=== PATIENT | male | born 1995 | race African-American/Black ===

== ENCOUNTER 2021-05-18 23:31 | Emergency (ER) | payer SELFPAY ==
[~2021-05-18] VITALS: Ht 170.2 cm; Wt 59.1 kg
[2021-05-18 23:35] VITALS: BP 110/65
--- NOTE | 2021-05-19 00:05 | PHYS DOC ---
Past Medical History Smoking Status: Current Every Day Smoker Alcohol Use: Occasionally General Adult EDM: Chief Complaint: SKIN RASH/ABSCESS HPI: HPI: Patient is a 25 year old male who presents with complaining of rash/insect bites. Patient states he has a sore on the left lower inner lip for a couple days. Denies any fever, denies smoking cigarettes but reports marijuana use which he smells heavily off. Denies any fever, cough or congestion. He is also complaining of a rash/itching on the right buttock and the left side of his face, symptoms began today. He believes he is being bit by something at home. Patient is very high on marijuana and seems to drift into other than none healthcare related stories. Review of Systems: Review of Systems: Constitutional: Denies fever or chills. [] Musculoskeletal: Denies back pain or joint pain. [] Integument: reports rash and mouth sore Neurologic: Denies headache, focal weakness or sensory changes. [] Endocrine: Denies polyuria or polydipsia. [] Psychiatric: Denies depression or anxiety. [] Heart Score: C/O Chest Pain: N/A Risk Factors: Risk Factors: DM, Current or recent (<one month) smoker, HTN, HLP, family hi story of CAD, obesity. Risk Scores: Score 0 - 3: 2.5% MACE over next 6 weeks - Discharge Home Score 4 - 6: 20.3% MACE over next 6 weeks - Admit for Clinical Observation Score 7 - 10: 72.7% MACE over next 6 weeks - Early Invasive Strategies Physical Exam: PE: Constitutional: Well developed, well nourished, no acute distress, non-toxic appearance. [] HENT: Normocephalic, atraumatic, bilateral external ears normal, oropharynx moist, no oral exudates, nose normal. [] Skin: Warm, dry, in the left lower lip with a small area of stomatitis lesions. Trace amount of nonerythematous papular rash on patient's face, right buttock was examined with the RN in the room, no rashes noted. Back: No tenderness, no CVA tenderness. [] Extremities: No tenderness, no cyanosis, no clubbing, ROM intact, no edema. [] Neurologic: Alert and oriented X 3, normal motor function, normal sensory function, no focal deficits noted. [] Psychologic: Affect normal, judgement normal, mood normal. [] EKG: EKG: [] Radiology/Procedures: Radiology/Procedures: [] Course & Med Decision Making: Course & Med Decision Making Pertinent Labs and Imaging studies reviewed. (See chart for details) This is a 25-year-old male patient presenting to the ED today complaining of rashes on the left inner lip, left side of the face and right buttock. Left inner lip noted for stomatitis lesion. Patient smokes marijuana, not tobacco user. No rashes noted on the right buttock. Hydrocortisone cream recommended as well as Benadryl. Instructed not to use the hydrocortisone cream on the face. Informed the stomatitis lesions will run their own cause. Patient is very high on marijuana right now. Dragon Disclaimer: Judith Disclaimer: This electronic medical record was generated, in whole or in part, using a voice recognition dictation system. Departure Departure Impression: Primary Impression: Stomatitis Additional Impression: Rash Disposition: 01 HOME / SELF CARE / HOMELESS Condition: STABLE Patient Instructions: Rash, Stomatitis, [id number] Additional Instructions: You were evaluated in the emergency room. The lesions in your mouth will clear on their own. You can take Tylenol or Motrin for pain or fever. You can use hydrocortisone cream for your rash. Follow-up with your doctor in 1 to 2 weeks GARRISON GUEVARA APRN May 19, 2021 00:05
[2021-05-19] MEDS ORDERED: HYDROCORTISONE 1% TOPICAL OINTMENT 30GM TUBE. TP ONE (00:30)
== END 2021-05-19 00:15 | disposition home or self-care (01) ==
LOC: ER 23:31
DX: K12.1 Other forms of stomatitis (principal); R21 Rash and other nonspecific skin eruption; F17.200 Nicotine dependence, unspecified, uncomplicated
CPT/HCPCS: 99282